=== PATIENT | female | born 1975 | race Caucasian/White ===

== ENCOUNTER 2022-05-17 14:37 | Emergency (ER) | payer MEDICAID ==
[~2022-05-17] VITALS: Ht 160 cm; Wt 93.0 kg
[2022-05-17] MEDS ORDERED: KETOROLAC 60MG/2ML VIAL IM ONE (18:00)
[2022-05-17 18:14] VITALS: BP 138/94
[2022-05-17] MEDS ORDERED: IBUP-2029 MT (19:34)
[2022-05-17] MEDS ORDERED: T3 PO (19:34)
== END 2022-05-17 20:10 | disposition home or self-care (01) ==
LOC: ER 14:37
DX: S92.511A Displaced fracture of proximal phalanx of right lesser toe(s), initial encounter for closed fracture (principal); M25.571 Pain in right ankle and joints of right foot; W10.8XXA Fall (on) (from) other stairs and steps, initial encounter; Y93.01 Activity, walking, marching and hiking; Y92.89 Other specified places as the place of occurrence of the external cause
CPT/HCPCS: 73610; 73630; 96372; 99284; J1885